=== PATIENT | female | born 1930 | race Caucasian/White ===

== ENCOUNTER → 2016-10-22 | Outpatient (CLI) | payer MEDICARE, OTHER ==
[~2016-10-22] MED LIST: ACID1GRA2 PO; ACLI400A2 INH; ALBU18HF INH; APIX5TAB PO; ASPI81TA14 PO; AZIT250T PO; BUDE10.22 INH; CARV12.52 PO; CARV6.252 PO; CEFD300C37 PO; CLOP75TA PO; DILT120C80 PO; DILT120C9 PO; DOXY100T PO; ESTR0.9T PO; EZET10TA3 PO; FERR325T16 PO; FLUT1DIS3 INH; FURO-93 PO; IPRA14.7 INH; IPRA3AMP NPPB; ISOS30TA8 PO; LEVO500T33 PO; LEVO88TA2 PO; METO10TA82 PO; NITR0.3T5 PO; POTA10TA31 PO; PRED10TA PO; PRED20TA PO; RAMI5CAP19 PO; RANO500T2 PO; ROSU20TA PO; SOTA120T14 PO; SPIR25TA PO; [UNRECOGNIZED DRUG - OTHER] PO
== END | disposition home or self-care (01) ==
LOC: CFH 08:45
PROVIDERS: ATTEND Family Medicine
DX: M48.02 Spinal stenosis, cervical region (principal); M50.322 Other cervical disc degeneration at C5-C6 level
CPT/HCPCS: 72050

== ENCOUNTER 2016-11-15 09:50 | Day surgery (SDC) | payer MEDICARE, OTHER ==
[~2016-11-15] VITALS: Ht 157.5 cm; Wt 67.7 kg
[2016-11-15 11:07] VITALS: BP 129/98
[2016-11-15 11:35] LABS: BLOOD UREA NITROGEN 21 mg/dL (7-18)
[2016-11-15] MEDS ORDERED: FERR324T18 PO (11:49)
[2016-11-15] MEDS ORDERED: RANO500T2 PO (11:49)
[2016-11-15] MEDS ORDERED: ISOS60TA36 PO (11:49)
[2016-11-15] MEDS ORDERED: APIX5TAB PO (11:49)
[2016-11-15] MEDS ORDERED: IPRA3AMP INH (11:49)
[2016-11-15] MEDS ORDERED: SOTA120T26 PO (11:49)
[2016-11-15] MEDS ORDERED: FLUT1DIS5 IH (11:49)
[2016-11-15] MEDS ORDERED: ROSU20TA PO (11:49)
[2016-11-15] MEDS ORDERED: ACLI400A2 INH (11:49)
[2016-11-15] MEDS ORDERED: PANT40TA5 PO (11:49)
[2016-11-15] MEDS ORDERED: SPIR25TA PO (11:49)
[2016-11-15] MEDS ORDERED: PROPOFOL 10 MG/ML, 20ML ONE (12:38)
[2016-11-15] MEDS ORDERED: POTASSIUM CHLORIDE 20 MEQ TAB.ER.PRT PO ONE ×2 (13:00→13:30)
[2016-11-15] MEDS ORDERED: POTASSIUM CHLORIDE 20 MEQ PACKET PO ONE ×2 (13:30)
[2016-12-03] MEDS ORDERED: POTA20PA PO (08:18)
== END 2016-11-15 15:40 | disposition home or self-care (01) ==
LOC: CACL 09:50
PROVIDERS: ATTEND Internal Medicine Cardiovascular Disease
DX: I48.91 Unspecified atrial fibrillation (principal); I10 Essential (primary) hypertension; E78.5 Hyperlipidemia, unspecified; I25.2 Old myocardial infarction; K21.9 Gastro-esophageal reflux disease without esophagitis; J44.9 Chronic obstructive pulmonary disease, unspecified; E03.9 Hypothyroidism, unspecified; Z87.891 Personal history of nicotine dependence; Z95.0 Presence of cardiac pacemaker; Z95.1 Presence of aortocoronary bypass graft
CPT/HCPCS: 36415; 80048; 83735; 92960; 93005; J2704

== ENCOUNTER 2016-11-19 11:01 | Day surgery (SDC) | payer MEDICARE, OTHER ==
[~2016-11-19] VITALS: Ht 157.5 cm; Wt 68.0 kg
[~2016-11-19 11:01] MED LIST changes: +FERR324T18 PO; +FLUT1DIS5 IH; +IPRA3AMP INH; +ISOS60TA36 PO; +PANT40TA5 PO; +SOTA120T26 PO
[2016-11-19 12:08] VITALS: BP 110/65
[2016-11-19 12:30] LABS: BLOOD UREA NITROGEN 11 mg/dL (7-18)
== END 2016-11-19 14:25 ==
LOC: CACL 11:01
PROVIDERS: ATTEND Internal Medicine Cardiovascular Disease
DX: I48.91 Unspecified atrial fibrillation (principal); Z53.9 Procedure and treatment not carried out, unspecified reason; I10 Essential (primary) hypertension; E78.5 Hyperlipidemia, unspecified; I25.2 Old myocardial infarction; I25.10 Atherosclerotic heart disease of native coronary artery without angina pectoris; I25.5 Ischemic cardiomyopathy; E03.9 Hypothyroidism, unspecified; J44.9 Chronic obstructive pulmonary disease, unspecified; J45.909 Unspecified asthma, uncomplicated; Z95.0 Presence of cardiac pacemaker; Z95.1 Presence of aortocoronary bypass graft
CPT/HCPCS: 36415; 80048; 92960; 93005

== ENCOUNTER 2016-12-09 23:05 | Inpatient (IN) | payer MEDICARE, OTHER ==
[~2016-12-09] VITALS: Ht 157.5 cm; Wt 70.2 kg
[~2016-12-09 23:05] MED LIST changes: +POTA20PA PO; -RAMI5CAP19 PO; +RAMI5CAP35 PO
[2016-12-09] MEDS ORDERED: APIX5TAB PO (23:24)
[2016-12-09] MEDS ORDERED: SODIUM CHLORIDE FLUSH 10ML SYR IVF ONE (23:30)
[2016-12-10] VITALS (8 sets, daily range): BP systolic 81–127; BP diastolic 46–70
[2016-12-10 00:09] LABS: HEMATOCRIT 38.2 % (34.6-47.8); HEMOGLOBIN 12.1 g/dL (11.7-16.4); WHITE BLOOD COUNT 12.3 x10^3/uL (3.4-10)
[2016-12-10 00:24] LABS: BLOOD UREA NITROGEN 36 mg/dL (7-18)
[2016-12-10 00:29] LABS: IS PT STATUS REG ER OR PRE ER? YES
[2016-12-10 00:31] LABS: ASPARTATE AMINO TRANSFERASE 1315 U/L (15-37)
[2016-12-10] MEDS ORDERED: DEXTROSE 50%, 50ML VIAL ONE (00:37)
[2016-12-10] MEDS ORDERED: ONDANSETRON 2MG/ML, 2ML ONE (00:38)
[2016-12-10] MEDS ORDERED: MORPHINE SULFATE 4 MG/ML, 1ML ONE (00:38)
[2016-12-10] MEDS: MORPHINE SULFATE 4 MG/ML, 1ML IVPush PRN ×2 (00:44→01:12)
[2016-12-10] MEDS ORDERED: DEXTROSE 50%, 50ML SYRINGE IVPush ONE ×2 (01:00→03:30)
[2016-12-10] MEDS ORDERED: SODIUM CHLORIDE 0.9%, 500ML IVBOLUS ONE ×2 (01:30→02:30)
[2016-12-10] MEDS ORDERED: OMNIPAQUE 350 MG/ML, 100ML BOTTLE ONE (01:51)
[2016-12-10] MEDS ORDERED: PIPERACILLIN/TAZO/PMX 3.375GM 50 ML IV ONE (02:30)
[2016-12-10] MEDS ORDERED: PIPERACILLIN/TAZO/PMX 3.375GM 50 ML ONE (02:36)
[2016-12-10 03:14] LABS: ABG COLLECTION SITE RIGHT BRACHIAL
[2016-12-10 03:20] LABS: IS PT STATUS REG ER OR PRE ER? YES
[2016-12-10] MEDS ORDERED: D5%-0.9% NACL 1,000 ML IV SCH (03:30)
[2016-12-10] MEDS ORDERED: ONDANSETRON 2MG/ML, 2ML IVPush PRN (03:30)
[2016-12-10] MEDS ORDERED: PROMETHAZINE 25 MG/ML, 1ML IM PRN (03:30)
[2016-12-10] MEDS ORDERED: PHYTONADIONE 10 MG/ML, 1ML SQ ONE (03:30)
[2016-12-10] MEDS ORDERED: BISACODYL 10 MG SUPP PR PRN (03:30)
[2016-12-10] MEDS ORDERED: VANCOMYCIN PER PHARMACY MC PRN (03:30)
[2016-12-10] MEDS ORDERED: MORPHINE SULFATE 4 MG/ML, 1ML IVPush PRN (04:00)
[2016-12-10] MEDS ORDERED: PHARMACOKINETIC CONSULTATION MC ONE (04:30)
[2016-12-10] MEDS ORDERED: VANCOMYCIN 1,400 MG in SODIUM CHLORIDE 0.9% 250 ML IV ONE (04:30)
[2016-12-10] MEDS ORDERED: PHARMACOKINETIC MONITORING MC PRN (04:30)
[2016-12-10] MEDS: SODIUM BICARB 8.4%,50ML SYR. 50 MEQ in D5%-0.45% NACL 1,000 ML IV SCH ×3 (04:51→21:14)
[2016-12-10] MEDS ORDERED: ALBUTEROL/IPRATROPIUM 2.5MG/0.5MG, 3 ML ONE (04:54)
[2016-12-10] MEDS ORDERED: ALBUTEROL/IPRATROPIUM 2.5MG/0.5MG, 3 ML NPPB PRN (05:30)
[2016-12-10] MEDS: morphine SULFATE 10 MG/ML, 1ML IVPush PRN (06:18)
[2016-12-10] MEDS: ALBUTEROL/IPRATROPIUM 2.5MG/0.5MG, 3 ML NPPB SCH ×4 (06:56→19:05)
[2016-12-10] MEDS: PIPERACILLIN/TAZO/PMX 2.25GM 50 ML IV SCH ×3 (08:07→21:09)
[2016-12-10] MEDS: FLUTICASONE/VILANTEROL 100-25MCG/INH INH SCH (09:07)
[2016-12-10] MEDS ORDERED: SODIUM CHLORIDE 0.9% 500 ML IV SCH (09:30)
[2016-12-10 09:33] LABS: IS PT STATUS REG ER OR PRE ER? NO
[2016-12-10 17:53] LABS: ABG COLLECTION SITE LEFT BRACHIAL
[2016-12-11 01:40] VITALS: BP 93/42
[2016-12-11] MEDS: PIPERACILLIN/TAZO/PMX 2.25GM 50 ML IV SCH ×2 (03:30→08:44)
[2016-12-11 04:35] VITALS: BP 110/54
[2016-12-11 04:48] LABS: HEMATOCRIT 28.5 % (34.6-47.8); HEMOGLOBIN 9.3 g/dL (11.7-16.4); WHITE BLOOD COUNT 7.7 x10^3/uL (3.4-10)
[2016-12-11 05:05] LABS: DIFF TOTAL CELLS COUNTED 100 CELL DIFF
[2016-12-11 05:06] LABS: BLOOD UREA NITROGEN 41 mg/dL (7-18)
[2016-12-11 05:07] LABS: VERIFY COUNTS? YES
[2016-12-11 05:08] LABS: ANISOCYTOSIS 1+; POLYCHROMASIA 1+
[2016-12-11 05:25] LABS: ASPARTATE AMINO TRANSFERASE 1327 U/L (15-37)
[2016-12-11] MEDS: ALBUTEROL/IPRATROPIUM 2.5MG/0.5MG, 3 ML NPPB SCH ×4 (07:00→18:45)
[2016-12-11] MEDS: SODIUM BICARB 8.4%,50ML SYR. 50 MEQ in D5%-0.45% NACL 1,000 ML IV SCH (07:05)
[2016-12-11] MEDS: FLUTICASONE/VILANTEROL 100-25MCG/INH INH SCH (08:45)
[2016-12-11] MEDS ORDERED: POTASSIUM CHLORIDE 10% 40 MEQ/30 ML UDC PO SCH (09:00)
[2016-12-11] MEDS ORDERED: PIPERACILLIN/TAZO/PMX 3.375GM 50 ML IV SCH (09:30)
[2016-12-11] MEDS ORDERED: VANCOMYCIN 1,400 MG in SODIUM CHLORIDE 0.9% 250 ML IV ONE (10:00)
[2016-12-11] MEDS: PIPERACILLIN/TAZO/PMX 3.375GM 50 ML IV SCH ×2 (14:00→20:16)
[2016-12-11] MEDS ORDERED: POTASSIUM CHLORIDE 40 MEQ in SODIUM CHLORIDE 0.9% 500 ML IV ONE (20:30)
[2016-12-11] MEDS: morphine SULFATE 10 MG/ML, 1ML IVPush PRN (20:46)
[2016-12-12] MEDS: PIPERACILLIN/TAZO/PMX 3.375GM 50 ML IV SCH ×3 (01:51→20:00)
[2016-12-12 04:56] LABS: HEMOGLOBIN 9.1 g/dL (11.7-16.4); WHITE BLOOD COUNT 6.7 x10^3/uL (3.4-10)
[2016-12-12 05:16] LABS: DIFF TOTAL CELLS COUNTED 100 CELL DIFF
[2016-12-12 05:18] LABS: ACANTHOCYTES 1+; ANISOCYTOSIS 1+; POLYCHROMASIA 1+; SCHISTOCYTES 1+; VERIFY COUNTS? YES
[2016-12-12 05:19] LABS: OVALOCYTES 1+
[2016-12-12 05:36] VITALS: BP 114/45
[2016-12-12 06:18] LABS: ASPARTATE AMINO TRANSFERASE 575 U/L (15-37); BLOOD UREA NITROGEN 28 mg/dL (7-18)
[2016-12-12] MEDS: ALBUTEROL/IPRATROPIUM 2.5MG/0.5MG, 3 ML NPPB SCH ×4 (07:00→20:00)
[2016-12-13] MEDS: PIPERACILLIN/TAZO/PMX 3.375GM 50 ML IV SCH ×2 (02:11→11:03)
[2016-12-13 04:00] VITALS: BP 106/48
[2016-12-13 05:20] LABS: HEMATOCRIT 26.2 % (34.6-47.8); HEMOGLOBIN 8.5 g/dL (11.7-16.4)
[2016-12-13 05:24] LABS: ASPARTATE AMINO TRANSFERASE 256 U/L (15-37); BLOOD UREA NITROGEN 20 mg/dL (7-18)
[2016-12-13] MEDS: ALBUTEROL/IPRATROPIUM 2.5MG/0.5MG, 3 ML NPPB SCH ×4 (07:00→19:50)
[2016-12-13] MEDS ORDERED: POTASSIUM CHLORIDE 40 MEQ in SODIUM CHLORIDE 0.9% 500 ML IV ONE (07:00)
[2016-12-13] MEDS: FLUTICASONE/VILANTEROL 100-25MCG/INH INH SCH ×2 (11:04→11:05)
[2016-12-13] MEDS ORDERED: POTASSIUM CHLORIDE 20 MEQ TAB.ER.PRT PO ONE ×3 (12:30→23:00)
[2016-12-13] MEDS ORDERED: ALBUMIN HUMAN 25% 100 ML IV ONE ×2 (13:30→14:00)
[2016-12-13] MEDS: MEROPENEM 1 GM in SODIUM CHLORIDE 0.9% 100 ML IV SCH ×2 (14:12→21:49)
[2016-12-13] MEDS ORDERED: FUROSEMIDE 40 MG/4 ML IV ONE (14:30)
[2016-12-13 18:13] LABS: HEMATOCRIT 25.8 % (34.6-47.8); HEMOGLOBIN 8.2 g/dL (11.7-16.4); WHITE BLOOD COUNT 6.7 x10^3/uL (3.4-10)
[2016-12-13 19:31] VITALS: BP 127/70
[2016-12-13] MEDS: ALBUMIN HUMAN 25% 100 ML IV SCH (21:49)
[2016-12-13] MEDS: FUROSEMIDE 40 MG/4 ML IV SCH (22:25)
[2016-12-14 01:34] VITALS: BP 136/60
[2016-12-14] MEDS: SIMETHICONE 80 MG CHEW TAB PO PRN ×2 (02:01→16:14)
[2016-12-14] MEDS: MEROPENEM 1 GM in SODIUM CHLORIDE 0.9% 100 ML IV SCH ×3 (05:26→20:07)
[2016-12-14 05:28] LABS: HEMATOCRIT 24.8 % (34.6-47.8); HEMOGLOBIN 8.2 g/dL (11.7-16.4); WHITE BLOOD COUNT 6.9 x10^3/uL (3.4-10)
[2016-12-14] MEDS: morphine SULFATE 10 MG/ML, 1ML IVPush PRN ×3 (05:43→22:35)
[2016-12-14 06:00] LABS: ASPARTATE AMINO TRANSFERASE 131 U/L (15-37); BLOOD UREA NITROGEN 19 mg/dL (7-18)
[2016-12-14 06:02] LABS: DIFF TOTAL CELLS COUNTED 100 CELL DIFF
[2016-12-14 06:03] LABS: ANISOCYTOSIS 1+; POLYCHROMASIA 1+; VERIFY COUNTS? YES
[2016-12-14 06:05] LABS: OVALOCYTES 1+
[2016-12-14] MEDS: ALBUTEROL/IPRATROPIUM 2.5MG/0.5MG, 3 ML NPPB SCH ×3 (07:00→21:09)
[2016-12-14 07:19] VITALS: BP 135/78
[2016-12-14] MEDS: ALBUMIN HUMAN 25% 100 ML IV SCH ×2 (09:40→20:07)
[2016-12-14] MEDS: FLUTICASONE/VILANTEROL 100-25MCG/INH INH SCH (09:48)
[2016-12-14] MEDS: FUROSEMIDE 40 MG/4 ML IV SCH ×2 (10:24→22:34)
[2016-12-14 12:56] VITALS: BP 138/81
[2016-12-14 20:20] VITALS: BP 128/78
[2016-12-15] VITALS (7 sets, daily range): BP systolic 105–139; BP diastolic 35–76
[2016-12-15 04:43] LABS: ASPARTATE AMINO TRANSFERASE 77 U/L (15-37); BLOOD UREA NITROGEN 21 mg/dL (7-18)
[2016-12-15 04:45] LABS: HEMATOCRIT 25.3 % (34.6-47.8); HEMOGLOBIN 8.2 g/dL (11.7-16.4); WHITE BLOOD COUNT 7.8 x10^3/uL (3.4-10)
[2016-12-15] MEDS: MEROPENEM 1 GM in SODIUM CHLORIDE 0.9% 100 ML IV SCH ×3 (05:56→21:00)
[2016-12-15] MEDS: ALBUTEROL/IPRATROPIUM 2.5MG/0.5MG, 3 ML NPPB SCH ×3 (07:15→20:06)
[2016-12-15] MEDS ORDERED: FENTANYL PF 100 MCG/2ML ONE (08:17)
[2016-12-15] MEDS ORDERED: BUPIVACAINE/PF-EPI 0.5% 1:200K ONE (08:17)
[2016-12-15] MEDS: FLUTICASONE/VILANTEROL 100-25MCG/INH INH SCH (09:48)
[2016-12-15] MEDS: ALBUMIN HUMAN 25% 100 ML IV SCH (09:49)
[2016-12-15] MEDS: FUROSEMIDE 40 MG/4 ML IV SCH ×2 (10:22→22:11)
[2016-12-15] MEDS: SPIRONOLACTONE 25 MG TABLET PO SCH ×2 (13:34→21:01)
[2016-12-15] MEDS: CARVEDILOL 3.125 MG TABLET PO SCH ×2 (13:34→21:01)
[2016-12-15] MEDS: METOLAZONE 2.5 MG TABLET PO SCH (21:02)
[2016-12-16 02:18] VITALS: BP 121/63
[2016-12-16 06:31] VITALS: BP 141/80
[2016-12-16] MEDS: LEVOTHYROXINE 88 MCG TABLET PO SCH (06:36)
[2016-12-16] MEDS: CARVEDILOL 3.125 MG TABLET PO SCH ×2 (06:36→17:31)
[2016-12-16] MEDS: MEROPENEM 1 GM in SODIUM CHLORIDE 0.9% 100 ML IV SCH ×3 (06:37→23:10)
[2016-12-16 07:39] LABS: HEMATOCRIT 25.9 % (34.6-47.8); HEMOGLOBIN 8.4 g/dL (11.7-16.4); WHITE BLOOD COUNT 8.1 x10^3/uL (3.4-10)
[2016-12-16 07:43] LABS: ASPARTATE AMINO TRANSFERASE 111 U/L (15-37); BLOOD UREA NITROGEN 23 mg/dL (7-18)
[2016-12-16 08:05] LABS: DIFF TOTAL CELLS COUNTED 100 CELL DIFF
[2016-12-16 08:09] LABS: ANISOCYTOSIS 1+
[2016-12-16 08:10] LABS: OVALOCYTES 1+; POLYCHROMASIA 1+
[2016-12-16 08:11] LABS: LARGE PLATELETS 1+
[2016-12-16 08:14] LABS: VERIFY COUNTS? YES
[2016-12-16] MEDS: FLUTICASONE/VILANTEROL 100-25MCG/INH INH SCH (08:25)
[2016-12-16] MEDS: METOLAZONE 2.5 MG TABLET PO SCH ×2 (08:25→21:56)
[2016-12-16] MEDS: SPIRONOLACTONE 25 MG TABLET PO SCH ×2 (08:25→20:14)
[2016-12-16] MEDS: ALBUTEROL/IPRATROPIUM 2.5MG/0.5MG, 3 ML NPPB SCH ×3 (08:47→21:00)
[2016-12-16] MEDS: FUROSEMIDE 40 MG/4 ML IV SCH ×2 (09:14→23:10)
[2016-12-16] MEDS ORDERED: POTASSIUM CHLORIDE 20 MEQ TAB.ER.PRT ONE (12:32)
[2016-12-16] MEDS: POTASSIUM CHLORIDE 20 MEQ TAB.ER.PRT PO SCH ×3 (12:45→20:14)
[2016-12-16 14:42] VITALS: BP 116/75
[2016-12-16 17:32] VITALS: BP 123/74
[2016-12-16 19:20] VITALS: BP 113/71
[2016-12-16] MEDS ORDERED: DIPHENHYDRAMINE 25 MG CAPSULE PO ONE (23:00)
[2016-12-16] MEDS ORDERED: POTASSIUM CHLORIDE 20 MEQ TAB.ER.PRT PO SCH (23:00)
[2016-12-16] MEDS ORDERED: POTASSIUM CHLORIDE 20 MEQ TAB.ER.PRT PO ONE (23:00)
[2016-12-17 00:52] VITALS: BP 115/67
[2016-12-17 05:15] LABS: HEMATOCRIT 27.2 % (34.6-47.8); HEMOGLOBIN 8.8 g/dL (11.7-16.4); WHITE BLOOD COUNT 9.9 x10^3/uL (3.4-10)
[2016-12-17 05:22] LABS: ASPARTATE AMINO TRANSFERASE 79 U/L (15-37); BLOOD UREA NITROGEN 21 mg/dL (7-18)
[2016-12-17] MEDS: CARVEDILOL 3.125 MG TABLET PO SCH ×2 (06:06→18:15)
[2016-12-17] MEDS: LEVOTHYROXINE 88 MCG TABLET PO SCH (06:06)
[2016-12-17 08:07] VITALS: BP 106/82
[2016-12-17] MEDS: ALBUTEROL/IPRATROPIUM 2.5MG/0.5MG, 3 ML NPPB SCH ×2 (09:00→19:38)
[2016-12-17] MEDS: FLUTICASONE/VILANTEROL 100-25MCG/INH INH SCH (10:45)
[2016-12-17] MEDS: MEROPENEM 1 GM in SODIUM CHLORIDE 0.9% 100 ML IV SCH ×2 (10:45→18:15)
[2016-12-17] MEDS: SPIRONOLACTONE 25 MG TABLET PO SCH (14:45)
[2016-12-17] MEDS: POTASSIUM CHLORIDE 20 MEQ TAB.ER.PRT PO SCH (14:45)
[2016-12-17] MEDS: METOLAZONE 2.5 MG TABLET PO SCH (14:45)
[2016-12-17] MEDS: FUROSEMIDE 40 MG/4 ML IV SCH (15:15)
[2016-12-17 16:00] VITALS: BP 91/40
[2016-12-17 18:03] VITALS: BP 90/42
[2016-12-17 18:58] VITALS: BP 109/65
[2016-12-18 02:11] VITALS: BP 129/67
[2016-12-18] MEDS: MEROPENEM 1 GM in SODIUM CHLORIDE 0.9% 100 ML IV SCH ×3 (02:38→21:06)
[2016-12-18] MEDS: SPIRONOLACTONE 25 MG TABLET PO SCH ×3 (02:39→21:06)
[2016-12-18] MEDS: POTASSIUM CHLORIDE 20 MEQ TAB.ER.PRT PO SCH ×3 (02:39→16:51)
[2016-12-18] MEDS: METOLAZONE 2.5 MG TABLET PO SCH ×2 (02:39→14:45)
[2016-12-18] MEDS: FUROSEMIDE 40 MG/4 ML IV SCH ×2 (03:36→15:15)
[2016-12-18 05:54] LABS: ASPARTATE AMINO TRANSFERASE 60 U/L (15-37); BLOOD UREA NITROGEN 18 mg/dL (7-18)
[2016-12-18] MEDS: CARVEDILOL 3.125 MG TABLET PO SCH ×2 (05:59→16:54)
[2016-12-18] MEDS: LEVOTHYROXINE 88 MCG TABLET PO SCH (06:00)
[2016-12-18 06:51] VITALS: BP 104/65
[2016-12-18] MEDS: ALBUTEROL/IPRATROPIUM 2.5MG/0.5MG, 3 ML NPPB SCH ×4 (07:35→20:13)
[2016-12-18] MEDS: FLUTICASONE/VILANTEROL 100-25MCG/INH INH SCH (08:02)
[2016-12-18 13:20] VITALS: BP 106/69
[2016-12-18 16:53] VITALS: BP 90/51
[2016-12-18 19:02] VITALS: BP 111/72
[2016-12-18] MEDS: APIXABAN 5 MG TABLET PO SCH (21:06)
[2016-12-19 01:54] VITALS: BP 109/68
[2016-12-19] MEDS: METOLAZONE 2.5 MG TABLET PO SCH (03:29)
[2016-12-19] MEDS: MEROPENEM 1 GM in SODIUM CHLORIDE 0.9% 100 ML IV SCH ×3 (03:30→22:41)
[2016-12-19] MEDS: FUROSEMIDE 40 MG/4 ML IV SCH ×2 (04:05→15:16)
[2016-12-19 05:56] LABS: HEMATOCRIT 28.5 % (34.6-47.8); HEMOGLOBIN 9.2 g/dL (11.7-16.4)
[2016-12-19 06:06] LABS: ASPARTATE AMINO TRANSFERASE 47 U/L (15-37); BLOOD UREA NITROGEN 18 mg/dL (7-18)
[2016-12-19 06:49] VITALS: BP 105/64
[2016-12-19] MEDS: LEVOTHYROXINE 88 MCG TABLET PO SCH (06:50)
[2016-12-19] MEDS: CARVEDILOL 3.125 MG TABLET PO SCH ×2 (06:50→17:10)
[2016-12-19 08:03] VITALS: BP 103/65
[2016-12-19] MEDS: SPIRONOLACTONE 25 MG TABLET PO SCH ×2 (08:17→22:39)
[2016-12-19] MEDS: APIXABAN 5 MG TABLET PO SCH ×2 (08:17→22:39)
[2016-12-19] MEDS: POTASSIUM CHLORIDE 20 MEQ TAB.ER.PRT PO SCH ×2 (08:17→17:11)
[2016-12-19] MEDS: FLUTICASONE/VILANTEROL 100-25MCG/INH INH SCH (08:17)
[2016-12-19] MEDS: ALBUTEROL/IPRATROPIUM 2.5MG/0.5MG, 3 ML NPPB SCH ×3 (09:07→19:24)
[2016-12-19] MEDS: LISINOPRIL 5 MG TABLET PO SCH (11:59)
[2016-12-19] MEDS ORDERED: MAGNESIUM SULFATE PMX 2GM/50ML 50 ML IV ONE (12:00)
[2016-12-19 13:33] VITALS: BP 93/60
[2016-12-19 18:53] VITALS: BP 85/51
[2016-12-20 01:08] VITALS: BP 91/58
[2016-12-20] MEDS: FUROSEMIDE 40 MG/4 ML IV SCH ×2 (03:15→16:17)
[2016-12-20] MEDS: MEROPENEM 1 GM in SODIUM CHLORIDE 0.9% 100 ML IV SCH ×3 (03:58→20:54)
[2016-12-20 05:41] LABS: BLOOD UREA NITROGEN 20 mg/dL (7-18)
[2016-12-20 05:44] LABS: ASPARTATE AMINO TRANSFERASE 40 U/L (15-37)
[2016-12-20 05:57] LABS: HEMATOCRIT 30.6 % (34.6-47.8); WHITE BLOOD COUNT 6.7 x10^3/uL (3.4-10)
[2016-12-20 06:12] VITALS: BP 100/61
[2016-12-20] MEDS: LEVOTHYROXINE 88 MCG TABLET PO SCH (06:14)
[2016-12-20] MEDS: CARVEDILOL 3.125 MG TABLET PO SCH ×2 (06:14→18:00)
[2016-12-20 08:50] VITALS: BP 90/48
[2016-12-20] MEDS: LISINOPRIL 5 MG TABLET PO SCH (09:00)
[2016-12-20] MEDS: ALBUTEROL/IPRATROPIUM 2.5MG/0.5MG, 3 ML NPPB SCH ×3 (09:00→21:20)
[2016-12-20] MEDS: FLUTICASONE/VILANTEROL 100-25MCG/INH INH SCH (09:05)
[2016-12-20] MEDS: SPIRONOLACTONE 25 MG TABLET PO SCH ×2 (09:05→21:06)
[2016-12-20] MEDS: POTASSIUM CHLORIDE 20 MEQ TAB.ER.PRT PO SCH ×2 (12:18→16:16)
[2016-12-20] MEDS: APIXABAN 5 MG TABLET PO SCH ×2 (12:18→21:06)
[2016-12-20 14:48] VITALS: BP 90/55
[2016-12-20 18:00] VITALS: BP 89/48
[2016-12-20 20:00] VITALS: BP 92/50
[2016-12-21] MEDS: DIPHENHYDRAMINE 25 MG CAPSULE PO PRN (02:17)
[2016-12-21 02:24] VITALS: BP 104/63
[2016-12-21] MEDS: FUROSEMIDE 40 MG/4 ML IV SCH (03:15)
[2016-12-21] MEDS: MEROPENEM 1 GM in SODIUM CHLORIDE 0.9% 100 ML IV SCH ×3 (04:47→20:19)
[2016-12-21 05:18] LABS: ASPARTATE AMINO TRANSFERASE 38 U/L (15-37); BLOOD UREA NITROGEN 17 mg/dL (7-18)
[2016-12-21] MEDS: LEVOTHYROXINE 88 MCG TABLET PO SCH (06:17)
[2016-12-21] MEDS: CARVEDILOL 3.125 MG TABLET PO SCH ×2 (06:17→18:02)
[2016-12-21 07:55] VITALS: BP 93/46
[2016-12-21] MEDS: POTASSIUM CHLORIDE 20 MEQ TAB.ER.PRT PO SCH (08:37)
[2016-12-21] MEDS: FLUTICASONE/VILANTEROL 100-25MCG/INH INH SCH (08:37)
[2016-12-21] MEDS: LISINOPRIL 5 MG TABLET PO SCH (08:38)
[2016-12-21] MEDS: APIXABAN 5 MG TABLET PO SCH ×2 (08:38→20:18)
[2016-12-21] MEDS: SPIRONOLACTONE 25 MG TABLET PO SCH ×2 (08:38→20:18)
[2016-12-21] MEDS: ALBUTEROL/IPRATROPIUM 2.5MG/0.5MG, 3 ML NPPB SCH ×3 (09:56→20:43)
[2016-12-21 14:28] VITALS: BP 93/49
[2016-12-21 18:29] VITALS: BP 85/62
[2016-12-21] MEDS: MAGNESIUM OXIDE 400 MG TABLET PO SCH (20:18)
[2016-12-22 02:01] VITALS: BP_SYST 141; BP_SYST 99; BP_DIAS 50; BP_DIAS 70
[2016-12-22] MEDS: MEROPENEM 1 GM in SODIUM CHLORIDE 0.9% 100 ML IV SCH ×2 (04:30→12:31)
[2016-12-22 04:31] LABS: HEMATOCRIT 31.2 % (34.6-47.8); HEMOGLOBIN 10.2 g/dL (11.7-16.4); WHITE BLOOD COUNT 6.2 x10^3/uL (3.4-10)
[2016-12-22 04:35] LABS: BLOOD UREA NITROGEN 20 mg/dL (7-18)
[2016-12-22 06:06] VITALS: BP 108/69
[2016-12-22] MEDS: CARVEDILOL 3.125 MG TABLET PO SCH ×2 (06:08→17:41)
[2016-12-22] MEDS: LEVOTHYROXINE 88 MCG TABLET PO SCH (06:08)
[2016-12-22 08:52] VITALS: BP 95/58
[2016-12-22] MEDS: LISINOPRIL 5 MG TABLET PO SCH (08:59)
[2016-12-22] MEDS: MAGNESIUM OXIDE 400 MG TABLET PO SCH ×2 (08:59→21:29)
[2016-12-22] MEDS: APIXABAN 5 MG TABLET PO SCH ×2 (08:59→21:29)
[2016-12-22] MEDS: FLUTICASONE/VILANTEROL 100-25MCG/INH INH SCH (08:59)
[2016-12-22] MEDS: SPIRONOLACTONE 25 MG TABLET PO SCH ×2 (08:59→21:29)
[2016-12-22] MEDS: POTASSIUM CHLORIDE 20 MEQ TAB.ER.PRT PO SCH (08:59)
[2016-12-22] MEDS: ALBUTEROL/IPRATROPIUM 2.5MG/0.5MG, 3 ML NPPB SCH ×3 (09:00→20:25)
[2016-12-22 14:28] VITALS: BP 99/61
[2016-12-22 17:41] VITALS: BP 110/63
[2016-12-22 19:15] VITALS: BP 107/71
[2016-12-22] MEDS ORDERED: DIPHENHYDRAMINE 12.5MG/5ML, 10ML UDC PO ONE (21:30)
[2016-12-23 01:09] VITALS: BP 99/64
[2016-12-23 04:52] LABS: HEMOGLOBIN 9.4 g/dL (11.7-16.4); WHITE BLOOD COUNT 5.2 x10^3/uL (3.4-10)
[2016-12-23 05:08] LABS: BLOOD UREA NITROGEN 17 mg/dL (7-18)
[2016-12-23] MEDS: LEVOTHYROXINE 88 MCG TABLET PO SCH (05:58)
[2016-12-23] MEDS: CARVEDILOL 3.125 MG TABLET PO SCH (05:58)
[2016-12-23 06:38] VITALS: BP 106/68
[2016-12-23] MEDS: APIXABAN 5 MG TABLET PO SCH ×2 (07:57→20:42)
[2016-12-23] MEDS: LISINOPRIL 5 MG TABLET PO SCH (07:57)
[2016-12-23] MEDS: FLUTICASONE/VILANTEROL 100-25MCG/INH INH SCH (07:57)
[2016-12-23] MEDS: POTASSIUM CHLORIDE 20 MEQ TAB.ER.PRT PO SCH (07:57)
[2016-12-23] MEDS: MAGNESIUM OXIDE 400 MG TABLET PO SCH ×2 (07:57→20:42)
[2016-12-23] MEDS: SPIRONOLACTONE 25 MG TABLET PO SCH ×2 (07:57→20:43)
[2016-12-23] MEDS: ALBUTEROL/IPRATROPIUM 2.5MG/0.5MG, 3 ML NPPB SCH ×3 (08:23→20:25)
[2016-12-23] MEDS ORDERED: FUROSEMIDE 20 MG/2 ML IV ONE (12:30)
[2016-12-23 14:23] VITALS: BP 94/58
[2016-12-23] MEDS: CARVEDILOL 6.25 MG TABLET PO SCH (17:51)
[2016-12-23] MEDS: SIMETHICONE 80 MG CHEW TAB PO PRN (17:51)
[2016-12-23 19:57] VITALS: BP 94/64
[2016-12-23] MEDS ORDERED: ATORVASTATIN 40 MG TABLET PO SCH (21:00)
[2016-12-23] MEDS: DIPHENHYDRAMINE 25 MG CAPSULE PO PRN (21:43)
[2016-12-24 00:56] VITALS: BP 103/65
[2016-12-24 06:00] VITALS: BP 92/37
[2016-12-24 06:09] LABS: BLOOD UREA NITROGEN 16 mg/dL (7-18)
[2016-12-24] MEDS: LEVOTHYROXINE 88 MCG TABLET PO SCH (06:49)
[2016-12-24] MEDS: CARVEDILOL 6.25 MG TABLET PO SCH (08:40)
[2016-12-24] MEDS: MAGNESIUM OXIDE 400 MG TABLET PO SCH (08:40)
[2016-12-24] MEDS: APIXABAN 5 MG TABLET PO SCH (08:40)
[2016-12-24] MEDS: FLUTICASONE/VILANTEROL 100-25MCG/INH INH SCH (08:40)
[2016-12-24 08:41] VITALS: BP 93/59
[2016-12-24] MEDS: ALBUTEROL/IPRATROPIUM 2.5MG/0.5MG, 3 ML NPPB SCH ×2 (09:00→14:18)
[2016-12-24] MEDS: POTASSIUM CHLORIDE 20 MEQ TAB.ER.PRT PO SCH (09:00)
[2016-12-24] MEDS: SPIRONOLACTONE 25 MG TABLET PO SCH (09:00)
[2016-12-24] MEDS ORDERED: FUROSEMIDE 40 MG TABLET PO SCH (11:00)
[2016-12-24 11:07] VITALS: BP 93/61
[2016-12-24] MEDS: LISINOPRIL 5 MG TABLET PO SCH (11:31)
[2016-12-24 14:16] VITALS: BP 103/61
[2016-12-24] MEDS ORDERED: LISI5TAB7 PO (15:57)
[2016-12-24] MEDS ORDERED: CARV6.2512 PO (15:57)
[2016-12-24] MEDS ORDERED: SPIR25TA PO (16:17)
[2016-12-25] MEDS ORDERED: POTASSIUM CHLORIDE 20 MEQ TAB.ER.PRT PO SCH (09:00)
[2016-12-25] MEDS ORDERED: SPIRONOLACTONE 25 MG TABLET PO SCH (09:00)
== END 2016-12-24 16:25 | DRG 871 ==
LOC: ED 23:59 → EDIP 12-10 03:12 → ICU 12-10 04:14 → 5SO 12-13 17:54 → ICU 12-20 23:13 → 5SO 12-23 15:43
PROC: 0T9B70Z Drainage of Bladder with Drainage Device, Via Natural or Artificial Opening (ICD-10-PCS; principal; 2016-12-10)
PROC: 30233K1 Transfusion of Nonautologous Frozen Plasma into Peripheral Vein, Percutaneous Approach (ICD-10-PCS; 2016-12-10)
DX: A41.9 Sepsis, unspecified organism (principal); J96.20 Acute and chronic respiratory failure, unspecified whether with hypoxia or hypercapnia; N17.0 Acute kidney failure with tubular necrosis; E43 Unspecified severe protein-calorie malnutrition; I50.23 Acute on chronic systolic (congestive) heart failure; E87.2 Acidosis; D68.69 Other thrombophilia; K80.00 Calculus of gallbladder with acute cholecystitis without obstruction; B17.9 Acute viral hepatitis, unspecified; K80.12 Calculus of gallbladder with acute and chronic cholecystitis without obstruction; E87.1 Hypo-osmolality and hyponatremia; J98.11 Atelectasis; R65.20 Severe sepsis without septic shock; M54.9 Dorsalgia, unspecified; E16.2 Hypoglycemia, unspecified; I48.91 Unspecified atrial fibrillation; I25.10 Atherosclerotic heart disease of native coronary artery without angina pectoris; Z68.28 Body mass index [BMI] 28.0-28.9, adult; D64.9 Anemia, unspecified; D69.59 Other secondary thrombocytopenia; E03.9 Hypothyroidism, unspecified; E78.5 Hyperlipidemia, unspecified; E83.42 Hypomagnesemia; E86.0 Dehydration; I07.1 Rheumatic tricuspid insufficiency; E86.1 Hypovolemia; I25.2 Old myocardial infarction; I25.5 Ischemic cardiomyopathy; I27.2 Other secondary pulmonary hypertension; I34.0 Nonrheumatic mitral (valve) insufficiency; I35.8 Other nonrheumatic aortic valve disorders; I48.2 Chronic atrial fibrillation; J44.9 Chronic obstructive pulmonary disease, unspecified; M71.21 Synovial cyst of popliteal space [Baker], right knee; R04.0 Epistaxis; Z53.9 Procedure and treatment not carried out, unspecified reason; Z79.01 Long term (current) use of anticoagulants; Z87.891 Personal history of nicotine dependence; Z95.0 Presence of cardiac pacemaker; Z95.1 Presence of aortocoronary bypass graft; Z95.5 Presence of coronary angioplasty implant and graft; Z99.81 Dependence on supplemental oxygen
CPT/HCPCS: 36415; 36600; 71010; 71020; 71275; 74175; 76700; 78226; 80048; 80053; 80074; 80202; 80307; 81001; 82247; 82248; 82533; 82550; 82803; 82962; 83605; 83690; 83735; 83880; 84100; 84132; 84145; 84443; 84484; 85025; 85384; 85610; 85730; 86850; 86900; 87040; 87081; 87086; 87324; 93005; 93306; 93970; 94640; 96365; 96366; 96368; 96375; 96376; J1940; J2185; J2543; J3010; J3370; J3430; J3480; J7042; J7620; P9047; Q9967; 29581-50; A9537; C1751; C9898; J2270; J3475; J7040; J7050; P9017; Q0163